=== PATIENT | male | born 1990 | race Caucasian/White ===

== ENCOUNTER 2018-06-19 03:41 | Emergency (ER) | payer MEDICAID, OTHER ==
[2018-06-19 03:45] VITALS: O2SAT 98
--- NOTE | 2018-06-19 04:32 | C.PDOC ---
History Of Present Illness Patient admits to drinking EtOH and doing heroin and crack cocaine. Has multiple complaints including "not feeling well" and insomnia. Time Seen by Provider: 06/19/18 03:51 Chief Complaint (Nursing): Substance Abuse Past Medical History Reviewed: Historical Data, Nursing Documentation, Vital Signs Vital Signs: Last Vital Signs Temp 98.2 F 06/19/18 03:43 Pulse 92 H 06/19/18 03:43 Resp 22 06/19/18 03:43 BP 138/86 06/19/18 03:43 Pulse Ox 98 06/19/18 03:43 - Medical History PMH: Anxiety, Arthritis, Asthma, Bipolar Disorder, Depression, Schizophrenia Denies: Diabetes, Hepatitis, HIV, HTN, Chronic Kidney Disease, Seizures, Sexually Transmitted Disease - [facility] Procedures ALCOHOL DETOXIFICATION (10/12/13) INJECT/INFUSE NEC (12/08/13) Family History: States: Unknown Family Hx - Social History Hx Tobacco Use: Yes Hx Alcohol Use: Yes Hx Substance Use: Yes - Immunization History Hx Tetanus Toxoid Vaccination: No Hx Influenza Vaccination: No Hx Pneumococcal Vaccination: No Review Of Systems Except As Marked, All Systems Reviewed And Found Negative. Constitutional: Negative for: Fever Cardiovascular: Negative for: Chest Pain Respiratory: Positive for: Cough. Negative for: Shortness of Breath Gastrointestinal: Negative for: Nausea, Vomiting, Abdominal Pain Neurological: Negative for: Headache Physical Exam - Physical Exam Appears: No Acute Distress Skin: Normal Color, Warm, Dry Head: Atraumatic Eye(s): bilateral: Normal Inspection Oral Mucosa: Moist Chest: Symmetrical Cardiovascular: Rhythm Regular Respiratory: Normal Breath Sounds Gastrointestinal/Abdominal: Normal Exam Extremity: Normal ROM Neurological/Psych: Other (Intoxicated) Gait: Unsteady (Intoxicated) ED Course And Treatment O2 Sat by Pulse Oximetry: 98 Medical Decision Making Medical Decision Making: Patient complains of insomnia. On re-eval patient is sleeping comfortably. Patient progressively returned to baseline throughout ED course. At time of discharge patient is awake and alert, and able to ambulate without difficulty. Disposition - Disposition Disposition: HOME/ ROUTINE Disposition Time: 06:00 Condition: STABLE Instructions: Alcohol Abuse and Alcoholism (DC) Forms: [employer] (Togolese) - Clinical Impression Clinical Impression: Alcohol intoxication
[2018-06-19 06:10] VITALS: BP 120/70; PULSE 80; RESP 16; TEMP 97
== END 2018-06-19 06:10 | disposition home or self-care (01) ==
LOC: C.ER 03:41
DX: F10.129 Alcohol abuse with intoxication, unspecified (principal)

== ENCOUNTER 2018-06-19 08:00 | Emergency (ER) | payer MEDICAID ==
[2018-06-19 08:20] VITALS: BP 145/83; PULSE 82; RESP 18; TEMP 97.4; O2SAT 99
--- NOTE | 2018-06-19 08:37 | C.PDOC ---
History Of Present Illness 27-year-old male presents to the ED today for alcohol detox. Patient presented to the ED 1 day ago for substance abuse, he was treated and discharged home at 6am today. Today he requests alcohol detox. No medical complaints at this time. Denies suicidal ideations, homicidal ideations, and any other associated symptoms. In the ED patients sugar measured 89. Time Seen by Provider: 06/19/18 08:23 Chief Complaint (Nursing): Substance Abuse History Per: Patient History/Exam Limitations: no limitations Recent travel outside of the [place]: No Past Medical History Reviewed: Historical Data, Nursing Documentation, Vital Signs Vital Signs: Last Vital Signs Temp 97.4 F L 06/19/18 08:15 Pulse 82 06/19/18 08:15 Resp 18 06/19/18 08:15 BP 145/83 06/19/18 08:15 Pulse Ox 99 06/19/18 08:15 - Medical History PMH: Anxiety, Arthritis, Asthma, Bipolar Disorder, Depression, Schizophrenia Denies: Diabetes, Hepatitis, HIV, HTN, Chronic Kidney Disease, Seizures, Sexually Transmitted Disease - [facility] Procedures ALCOHOL DETOXIFICATION (10/12/13) INJECT/INFUSE NEC (12/08/13) Family History: States: Unknown Family Hx - Social History Hx Tobacco Use: Yes Hx Alcohol Use: Yes Hx Substance Use: Yes - Immunization History Hx Tetanus Toxoid Vaccination: No Hx Influenza Vaccination: No Hx Pneumococcal Vaccination: No Review Of Systems Except As Marked, All Systems Reviewed And Found Negative. Constitutional: Positive for: Other (dextox ) Psych: Negative for: Suicidal ideation, Other (homicidal ideations. ) Physical Exam - Physical Exam Appears: Well, Non-toxic, No Acute Distress Skin: Normal Color, Warm, Dry Head: Atraumatic, Normacephalic Eye(s): bilateral: Normal Inspection Oral Mucosa: Moist Neck: Normal ROM, Supple Chest: Symmetrical, No Deformity Cardiovascular: Rhythm Regular, No Murmur Respiratory: Normal Breath Sounds, No Rales, No Rhonchi, No Wheezing Gastrointestinal/Abdominal: Normal Exam, Soft, No Tenderness Neurological/Psych: Oriented x3 ED Course And Treatment O2 Sat by Pulse Oximetry: 99 (RA) Pulse Ox Interpretation: Normal Progress Note: Patient evaluated by crisis. Crisis informed the patient that at this time there are no detox beds available. Patient was given a list of detox places to visit and given [facility] detox to be put on waiting list. Patient stable for discharge home. Disposition - Disposition Disposition: HOME/ ROUTINE Disposition Time: 08:32 Condition: STABLE Additional Instructions: Follow up with PMD within 1-2 days. Referral to detox places was given to you. You also can call [facility] detox coordinator to be pre-screened for Detox. Tel. [phone]. Return to ED if feel worse. 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 - Scribe Statement The provider has reviewed the documentation as recorded by the Scribe (Aide Montano) All medical record entries made by the Scribe were at my direction and personally dictated by me. I have reviewed the chart and agree that the record accurately reflects my personal performance of the history, physical exam, medical decision making, and the department course for this patient. I have also personally directed, reviewed, and agree with the discharge instructions and disposition.
== END 2018-06-19 08:45 | disposition home or self-care (01) ==
LOC: C.ER 08:00
DX: F19.10 Other psychoactive substance abuse, uncomplicated (principal)

== ENCOUNTER 2018-06-20 | Emergency (ER) | payer MEDICAID ==
--- NOTE | 2018-06-20 00:47 | C.PDOC ---
History Of Present Illness 27 year old male is brought to the ED by EMS for evaluation of public intoxication. Patient states he feels weak, patient reports he drank 2 paints of vodka and smoked some crack today [employer]. Patient was seen in the ED on 06/19(twice)with similar presentation, upon discharge he was given detox information but never called. Patient denies SI/HI, hallucinations, CP, SOB, injury, fall, trauma. Time Seen by Provider: 06/20/18 00:46 Chief Complaint (Nursing): Medical Clearance History Per: Patient History/Exam Limitations: no limitations Onset/Duration Of Symptoms: Hrs Current Symptoms Are (Timing): Still Present Severity: None Reports Recently: Seen In ED, Treated By A Physician Recent travel outside of the [place]: No Additional History Per: Patient Past Medical History Reviewed: Historical Data, Nursing Documentation, Vital Signs Vital Signs: Last Vital Signs Temp 97.4 F L 06/20/18 00:13 Pulse 86 06/20/18 00:13 Resp 20 06/20/18 00:13 BP 149/98 H 06/20/18 00:13 Pulse Ox 99 06/20/18 00:13 - Medical History PMH: Anxiety, Arthritis, Asthma, Bipolar Disorder, Depression, Schizophrenia Denies: Diabetes, Hepatitis, HIV, HTN, Chronic Kidney Disease, Seizures, Sexually Transmitted Disease Surgical History: No Surg Hx - [facility] Procedures ALCOHOL DETOXIFICATION (10/12/13) INJECT/INFUSE NEC (12/08/13) Family History: States: Unknown Family Hx - Social History Hx Tobacco Use: Yes Hx Alcohol Use: Yes Hx Substance Use: Yes - Immunization History Hx Tetanus Toxoid Vaccination: No Hx Influenza Vaccination: No Hx Pneumococcal Vaccination: No Review Of Systems Constitutional: Negative for: Fever, Chills Cardiovascular: Negative for: Chest Pain Respiratory: Negative for: Shortness of Breath Gastrointestinal: Negative for: Nausea, Vomiting, Abdominal Pain Skin: Negative for: Rash Psych: Negative for: Depression, Suicidal ideation Physical Exam - Physical Exam Appears: Non-toxic, No Acute Distress Skin: Warm, Dry, Other (old abrassion right cheeck) Head: Normacephalic Eye(s): bilateral: Normal Inspection Oral Mucosa: Moist Neck: Supple Chest: Symmetrical Cardiovascular: Rhythm Regular Respiratory: No Rales, No Rhonchi, No Wheezing Gastrointestinal/Abdominal: Soft, No Tenderness, No Guarding, No Rebound Back: Normal Inspection Extremity: Bilateral: Atraumatic, Normal Color And Temperature, Normal ROM Neurological/Psych: Oriented x3, Normal Speech, Normal Cognition Gait: Steady ED Course And Treatment O2 Sat by Pulse Oximetry: 99 (ON RA) Pulse Ox Interpretation: Normal Progress Note: 2:30 AM Pt seen ambulating to the bathroom unassisted and without difficulty Reevaluation Time: 05:14 Reassessment Condition: Improved Disposition Counseled Patient/Family Regarding: Studies Performed, Diagnosis, Need For Followup - Disposition Referrals: [facility] [Outside] Disposition: HOME/ ROUTINE Disposition Time: 00:47 Condition: FAIR Instructions: Alcohol Abuse and Alcoholism (DC) Forms: [employer] (Beninese) - Clinical Impression Clinical Impression: Alcohol intoxication, Substance abuse - Scribe Statement The provider has reviewed the documentation as recorded by the Scribe Jed Mackey All medical record entries made by the Scribe were at my direction and personally dictated by me. I have reviewed the chart and agree that the record accurately reflects my personal performance of the history, physical exam, medical decision making, and the department course for this patient. I have also personally directed, reviewed, and agree with the discharge instructions and disposition.
[2018-06-20 05:19] VITALS: BP 155/70; PULSE 67; RESP 20; TEMP 98.8; O2SAT 100
== END 2018-06-20 05:26 | disposition home or self-care (01) ==
LOC: C.ER
DX: F10.129 Alcohol abuse with intoxication, unspecified (principal); Y90.9 Presence of alcohol in blood, level not specified